=== PATIENT | female | born 1960 | race American Indian/Alaskan Native ===

== ENCOUNTER 2024-05-26 13:33 | Emergency (ER) | payer MEDICARE, OTHER ==
[2024-05-26] MEDS: Acetaminophen/oxyCODONE 325-5 MG Tab PO ONE (15:07)
[2024-05-26] MEDS: Ondansetron 4 MG Tab.DIS PO ONE (15:07)
== END 2024-05-26 16:15 | disposition home or self-care (01) ==
LOC: JD.ED 13:33
DX: S32.029A Unspecified fracture of second lumbar vertebra, initial encounter for closed fracture (principal); S22.080A Wedge compression fracture of T11-T12 vertebra, initial encounter for closed fracture; S32.130A Nondisplaced Zone III fracture of sacrum, initial encounter for closed fracture; S30.0XXA Contusion of lower back and pelvis, initial encounter; E03.9 Hypothyroidism, unspecified; Z79.890 Hormone replacement therapy; Z79.82 Long term (current) use of aspirin; Z79.899 Other long term (current) drug therapy; Z88.2 Allergy status to sulfonamides; V80.010A Animal-rider injured by fall from or being thrown from horse in noncollision accident, initial encounter; Y93.52 Activity, horseback riding
CPT/HCPCS: 72128; 72131; 72192; 99283; A9270; 99284